=== PATIENT | male | born 1995 ===

== ENCOUNTER → 2022-09-04 | Outpatient (REF) | payer SELFPAY ==
[2022-09-04 14:24] LABS: SEMEN APPEARANCE OPAQUE (OPAQUE); SEMEN VISCOSITY LIQUID (LIQUID); SEMEN VOLUME 4.8 ml (2.0-5.0); WBC CONCENTRATION <=1 M/ml (<=1 M/ml)
== END ==
LOC: M LAB REF 13:14
PROVIDERS: ATTEND Physician Assistant
DX: Z30.2 Encounter for sterilization (principal)